=== PATIENT | female | born 1990 | race American Indian/Alaskan Native ===

== ENCOUNTER 2016-10-31 13:59 | Emergency (ER) | payer OTHER ==
[2016-10-31] MEDS ORDERED: Ketorolac 60 MG/2 ML SDV IM ONE (14:20)
--- NOTE | 2016-10-31 14:23 | EDM.PDOC ---
ED HPI ENT - General Chief Complaint: Back Pain or Injury Stated Complaint: SIDE PAIN Time Seen by Provider: 10/31/16 14:22 Source of Information: Reports: Patient History Limitations: Reports: No limitations - History of Present Illness INITIAL COMMENTS - FREE TEXT/NARRATIVE: HISTORY AND PHYSICAL: [26-year-old female who presents after having been coughing for 2 months now has left sided back pain] History of Present Illness: [2 month history of coughing upper respiratory illness. Pain occurred after a coughing spell] Review of Systems: As per history of present illness and below otherwise all systems reviewed and negative. Past medical history: As per history of present illness and as reviewed below otherwise noncontributory. Surgical history: As per history of present illness and as reviewed below otherwise noncontributory. Social history: No reported history of drug or alcohol abuse. Family history: As per history of present illness and as reviewed below otherwise noncontributory. Physical exam: HEENT: Atraumatic, normocehpalic, pupils reactive, negative for conjunctival pallor or scleral icterus, mucous membranes moist, throat clear, neck supple, nontender, trachea midline. Lungs: Clear to auscultation, breath sounds equal bilaterally, chest non tender. Heart: S1S2, regular, negative for clicks, rubs, or JVD. Abdomen: Soft, nondistended, nontender. Negative for masses or hepatossplenmegaly. Negative for costovertebral tenderness. Pelvis: Stable nontender. Genitourinary: Deferred. Rectal: Deferred Extremities: Atraumatic, negative for cords or calf pain. Neurovascular unremarkable. Neuro: Awake, alert, oriented. Cranial nerves II through XII unremarkable. Cerebellum unremarkable. Motor and sensory unremarkable throughout. Exam nonfocal. Patient improved in discomfort level after having the Toradol IM Diagnostics: [CBC CMP chest x-ray all unremarkable] Therapeutics: [60 mg Toradol IM] Impression: [Muscle spasm] Plan: [] Flexeril 10 mg 3 times a day when necessary muscle spasm Moist heat to this area Diclofenac twice a day Followup with [facility] Rylee Henley NP [facility] [address] [place] [id number] Definitive disposition and diagnosis as appropriate pending reevaluation and review of above. Timing/Duration: Reports: Week(s): Severity: moderate Quality: Reports: Ache Improves with: Reports: None Worsens with: Reports: Movement Associated Symptoms: Reports: cough, fever/chills - Related Data Allergies/ADRs: Allergies Allergy/AdvReac Type Severity Reaction Status Date / Time ampicillin sodium Allergy Hives Verified 01/17/14 10:06 [From Unasyn] Penicillins Allergy Hives Verified 01/17/14 10:06 sulbactam sodium Allergy Hives Verified 01/17/14 10:06 [From Unasyn] Home Meds: Home Meds Cyclobenzaprine [Flexeril] 10 mg PO BID #20 tablet 10/31/16 [Rx] Diclofenac Sodium [IJD: Diclofenac Sodium] 75 mg PO .TWICE DAILY W MEALS #20 tab.ec 10/31/16 [Rx] Past Medical History HEENT History: Reports: None Cardiovascular History: Reports: None Respiratory History: Reports: None Gastrointestinal History: Reports: None Genitourinary History: Reports: None 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 Musculoskeletal History: Reports: Fracture, Other (see below) Other Musculoskeletal History: sledding accident in 2002 resulting in head fractures, back injuries Neurological History: Reports: Headaches, chronic Psychiatric History: Reports: Depression Endocrine/Metabolic History: Reports: Other (see below) Other Endocrine/Metabolic History: PCOS, insulin resistance Dermatologic History: Reports: None - Infectious Disease History Infectious Disease History: Reports: None Social & Family History - Tobacco Use Smoking Status *Q: Current Every Day Smoker Years of Tobacco use: 2 Packs/Tins Daily: 0.2 - Alcohol Use Days Per Week of Alcohol Use: 0 - Recreational Drug Use Recreational Drug Use: No ED ROS ENT - Review of Systems Review Of Systems: ROS reveals no pertinent complaints other than HPI. ED EXAM, ENT - Physical Exam Exam: See Below Course - Orders/Labs/Meds Orders: Active Orders 24 hr Category Date Time Status Chest 2V [CR] Stat Exams 10/31/16 14:20 Taken Labs: Laboratory Tests 10/31/16 10/31/16 Range/Units 14:38 14:38 WBC 9.08 (4.0-11.0) K/uL RBC 5.13 (4.30-5.90) M/uL Hgb 14.9 (12.0-16.0) g/dL Hct 44.5 (36.0-46.0) % MCV 86.7 (80.0-98.0) fL MCH 29.0 (27.0-32.0) pg MCHC 33.5 (31.0-37.0) g/dL RDW Std Deviation 42.3 (28.0-62.0) fl RDW Coeff of Aga 13 (11.0-15.0) % Plt Count 248 (150-400) K/uL MPV 10.20 (7.40-12.00) fL Neut % (Auto) 50.1 (48.0-80.0) % Lymph % (Auto) 37.7 (16.0-40.0) % [place] % (Auto) 7.8 (0.0-15.0) % Eos % (Auto) 4.1 (0.0-7.0) % Baso % (Auto) 0.3 (0.0-1.5) % Neut # 4.6 (1.4-5.7) K/uL Lymph # 3.4 H (0.6-2.4) K/uL [place] # 0.7 (0.0-0.8) K/uL Eos # 0.4 (0.0-0.7) K/uL Baso # 0.0 (0.0-0.1) K/uL Nucleated RBC % 0.0 /100WBC Nucleated RBCs # 0 K/uL Sodium 138 (136-146) mmol/L Potassium 4.2 (3.5-5.1) mmol/L Chloride 105 (98-110) mmol/L Carbon Dioxide 23 (21-31) mmol/L BUN 14 (6.0-23.0) mg/dL Creatinine 0.8 (0.6-1.5) mg/dL Est Cr Clr Drug Dosing TNP Estimated GFR (MDRD) > 60.0 ml/min Glucose 91 (60-110) mg/dL Calcium 9.8 (8.8-10.8) mg/dL Total Bilirubin 0.6 (0.1-1.5) mg/dL AST 82 H (5-40) IU/L ALT 125 H (8-54) IU/L Alkaline Phosphatase 85 (40-150) Total Protein 8.3 H (6.0-8.0) g/dL Albumin 4.1 (3.5-5.0) g/dL Globulin 4.2 H (2.0-3.5) g/dL Albumin/Globulin Ratio 1.0 L (1.3-2.8) Meds: Medications Discontinued Medications Generic Name Dose Route Start Last Admin Trade Name Freq PRN Reason Stop Dose Admin Ketorolac Tromethamine 60 mg 10/31/16 14:20 10/31/16 14:28 Toradol IM 10/31/16 14:21 60 mg ONETIME ONE Administration Departure - Departure Time of Disposition: 15:43 Disposition: Home, Self-Care 01 Condition: good Clinical Impression: Muscle spasm of back Prescriptions: Cyclobenzaprine [Flexeril] 10 mg PO BID #20 tablet Diclofenac Sodium [IJD: Diclofenac Sodium] 75 mg PO .TWICE DAILY W MEALS #20 tab.ec Forms: ED Department Discharge - My Orders Last 24 Hours: My Active Orders 10/31/16 14:20 Chest 2V [CR] Stat - Assessment/Plan Last 24 Hours: My Active Orders 10/31/16 14:20 Chest 2V [CR] Stat
[2016-10-31 15:06] LABS: CHLORIDE,CL 105 mmol/L (98-110); SODIUM,NA 138 mmol/L (136-146)
[2016-10-31 16:13] VITALS: BP 138/75
--- NOTE | 2016-10-31 16:58 | CR ---
EXAM DATE: 10/31/16 PATIENT'S AGE: 26 PATIENT: TAMMY JONES Facility: [place], [place] Site . Site : 1990 Study: XRay Chest [id number] 3:04:29 PM Ordering Physician: Doctor Kovacs Final Report: INDICATION: pain, sob, left side having spasms x2 hrs TECHNIQUE: Chest 2 views. COMPARISON: None. FINDINGS: Cardiovascular and mediastinum: Heart size and vasculature are normal in caliber and appearance. Mediastinum is within normal limits. Lungs and pleural spaces: Lungs are clear. No sign of infiltrate or mass. No sign of pleural effusion. No pneumothorax. Bones and soft tissues: No significant findings. IMPRESSION: Unremarkable chest. Dictated by: Rafael Atkinson MD @ 10/31/2016 15:08:10 (Electronic Signature) Report Signed by Proxy and Original Signed Document filed in the Medical Record. MTDD
== END 2016-10-31 16:02 | disposition home or self-care (01) ==
LOC: MW.ED 13:59
DX: M62.830 Muscle spasm of back (principal); F32.9 Major depressive disorder, single episode, unspecified; Z88.0 Allergy status to penicillin; Z88.1 Allergy status to other antibiotic agents; F17.210 Nicotine dependence, cigarettes, uncomplicated
CPT/HCPCS: 36415; 71020; 80053; 85025; 96372; 99283; J1885

== ENCOUNTER 2018-03-12 21:52 | Emergency (ER) | payer OTHER ==
--- NOTE | 2018-03-12 21:59 | EDM.PDOC ---
ED HPI GENERAL MEDICAL PROBLEM - General Stated Complaint: PALPITATIONS Time Seen by Provider: 03/12/18 21:59 Source of Information: Reports: Patient History Limitations: Reports: No Limitations - History of Present Illness INITIAL COMMENTS - FREE TEXT/NARRATIVE: HISTORY AND PHYSICAL: History of present illness: 78-year-old female presenting the emergency department with chief complaint of heart palpitations. Patient states that today she felt like her heart was "acting weird". States that she's also had some associated swollen legs and some shortness of breath. She does have a history of asthma as a child. She has had a dry cough and has a history of PCOS. She denies any overt chest pain but secondary to her grandfather having a "heart attack at age 25" she thought she should come in for further evaluation. As above she denies any chest pain but has felt weird heartbeats on-and-off throughout the day. States that she has been working in extreme heat and doesn't know if she's been drinking enough water. She currently denies any chest pain, palpitations, shortness of breath, syncopal episodes, focal deficits. Review of systems: As per history of present illness and below otherwise all systems reviewed and negative. Past medical history: As per history of present illness and as reviewed below otherwise noncontributory. Surgical history: As per history of present illness and as reviewed below otherwise noncontributory. Social history: No reported history of drug or alcohol abuse. Family history: As per history of present illness and as reviewed below otherwise noncontributory. Physical exam: HEENT: Atraumatic, normocephalic, pupils reactive, negative for conjunctival pallor or scleral icterus, mucous membranes moist, throat clear, neck supple, nontender, trachea midline. Lungs: Clear to auscultation, breath sounds equal bilaterally, chest nontender. Heart: S1S2, regular, negative for clicks, rubs, or JVD. Abdomen: Soft, nondistended, nontender. Negative for masses or hepatosplenomegaly. Negative for costovertebral tenderness. Pelvis: Stable nontender. Genitourinary: Deferred. Rectal: Deferred. Extremities: Atraumatic, negative for cords or calf pain. Neurovascular unremarkable. Neuro: Awake, alert, oriented. Cranial nerves II through XII unremarkable. Cerebellum unremarkable. Motor and sensory unremarkable throughout. Exam nonfocal. Diagnostics: CBC, CMP, troponin, EKG, chest x-ray, Therapeutics: 1 L normal saline Impression: Atypical chest pain Anxiety Plan: CBC, CMP, troponin, EKG, and chest x-ray were all unremarkable. Her heart symptoms seem to be more anxiety related. This may be secondary to her reported strong family history of heart disease. Patient was instructed to follow-up with a primary care provider and all numbers were given to her as she has not seen a provider in sometime. She was told to return to emergency department if she had any new or worsening symptoms. Definitive disposition and diagnosis as appropriate pending reevaluation and review of above. denies pain Pain Score (Numeric/FACES): 0 - Related Data Allergies Allergy/AdvReac Type Severity Reaction Status Date / Time ampicillin sodium Allergy Hives Verified 03/12/18 22:07 [From Unasyn] Penicillins Allergy Hives Verified 03/12/18 22:07 sulbactam sodium Allergy Hives Verified 03/12/18 22:07 [From Unasyn] Home Meds: Home Meds Cyclobenzaprine [Flexeril] 10 mg PO BID #20 tablet 10/31/16 [Rx] Diclofenac Sodium [IJD: Diclofenac Sodium] 75 mg PO .TWICE DAILY W MEALS #20 tab.ec 10/31/16 [Rx] Past Medical History HEENT History: Reports: None Cardiovascular History: Reports: None Respiratory History: Reports: None Gastrointestinal History: Reports: None Genitourinary History: Reports: None 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 ED EXAM, GENERAL - Physical Exam Exam: See Below Course - Vital Signs Last Recorded V/S: Last Vital Signs Temp 98.5 F 03/12/18 22:07 Pulse 84 03/12/18 23:06 Resp 18 03/12/18 23:06 BP 122/72 03/12/18 23:06 Pulse Ox 98 03/12/18 23:06 - Orders/Labs/Meds Orders: Active Orders 24 hr Category Date Time Status Cardiac Monitoring [RC] . DIRECTED Care 03/12/18 22:36 Active EKG Documentation Completion [RC] STAT Care 03/12/18 22:36 Inactive Oxygen Therapy [RC] ASDIRECTED Care 03/12/18 22:36 Active Pulse Oximetry [RC] ASDIRECTED Care 03/12/18 22:36 Active Chest 2V [CR] Stat Exams 03/12/18 22:36 Taken HCG QUALITATIVE,URINE [URCHEM] Stat Lab 03/12/18 23:04 Ordered UA W/MICROSCOPIC [URIN] Stat Lab 03/12/18 23:04 Ordered Sodium Chloride 0.9% [Saline Flush] Med 03/12/18 22:36 Active 10 ml FLUSH ASDIRECTED PRN Sodium Chloride 0.9% [Saline Flush] Med 03/12/18 22:36 Active 2.5 ml FLUSH ASDIRECTED PRN Sodium Chloride 0.9% [Saline Flush] Med 03/12/18 22:36 Active 2.5 ml FLUSH ASDIRECTED PRN Saline Lock Insert [OM.PC] Stat Oth 03/12/18 22:36 Ordered Medication Orders Sodium Chloride (Saline Flush) 2.5 ml FLUSH ASDIRECTED PRN PRN Reason: Keep Vein Open Sodium Chloride (Saline Flush) 10 ml FLUSH ASDIRECTED PRN PRN Reason: Keep Vein Open Sodium Chloride (Saline Flush) 2.5 ml FLUSH ASDIRECTED PRN PRN Reason: Keep Vein Open Labs: Laboratory Tests 03/12/18 03/12/18 03/12/18 Range/Units 23:02 23:02 23:04 WBC 10.33 (4.0-11.0) K/uL RBC 4.68 (4.30-5.90) M/uL Hgb 13.4 (12.0-16.0) g/dL Hct 40.8 (36.0-46.0) % MCV 87.2 (80.0-98.0) fL MCH 28.6 (27.0-32.0) pg MCHC 32.8 (31.0-37.0) g/dL RDW Std Deviation 44.4 (28.0-62.0) fl RDW Coeff of Aga 14 (11.0-15.0) % Plt Count 240 (150-400) K/uL MPV 10.80 (7.40-12.00) fL Neut % (Auto) 53.8 (48.0-80.0) % Lymph % (Auto) 35.3 (16.0-40.0) % [place] % (Auto) 7.2 (0.0-15.0) % Eos % (Auto) 3.5 (0.0-7.0) % Baso % (Auto) 0.2 (0.0-1.5) % Neut # (Auto) 5.6 (1.4-5.7) K/uL Lymph # (Auto) 3.7 H (0.6-2.4) K/uL [place] # (Auto) 0.7 (0.0-0.8) K/uL Eos # (Auto) 0.4 (0.0-0.7) K/uL Baso # (Auto) 0.0 (0.0-0.1) K/uL Nucleated RBC % 0.0 /100WBC Nucleated RBCs # 0 K/uL Sodium 140 (136-145) mmol/L Potassium 3.9 (3.5-5.1) mmol/L Chloride 105 (98-107) mmol/L Carbon Dioxide 27.6 (21.0-32.0) mmol/L BUN 13 (7.0-18.0) mg/dL Creatinine 1.0 (0.6-1.0) mg/dL Est Cr Clr Drug Dosing 82.18 mL/min Estimated GFR (MDRD) > 60.0 ml/min Glucose 157 H (74-106) mg/dL Calcium 8.9 (8.5-10.1) mg/dL Total Bilirubin 0.2 (0.2-1.0) mg/dL AST 56 H (15-37) IU/L ALT 99 H (14-63) IU/L Alkaline Phosphatase 102 (46-116) U/L Troponin I < 0.050 (0.000-0.056) ng/mL Total Protein 7.3 (6.4-8.2) g/dL Albumin 3.4 (3.4-5.0) g/dL Globulin 3.9 H (2.0-3.5) g/dL Albumin/Globulin Ratio 0.9 L (1.3-2.8) Urine Color YELLOW Urine Appearance CLEAR Urine pH 7.0 (5.0-8.0) Ur Specific [place] <= 1.005 (1.001-1.035) Urine Protein NEGATIVE (NEGATIVE) mg/dL Urine Glucose (UA) NEGATIVE (NEGATIVE) mg/dL Urine Ketones NEGATIVE (NEGATIVE) mg/dL Urine Occult Blood NEGATIVE (NEGATIVE) Urine Nitrite NEGATIVE (NEGATIVE) Urine Bilirubin NEGATIVE (NEGATIVE) Urine Urobilinogen 0.2 (<2.0) EU/dL Ur Leukocyte Esterase NEGATIVE (NEGATIVE) Urine RBC NONE SEEN (0-2/HPF) Urine WBC 0-1 (0-5/HPF) Ur Epithelial Cells RARE (NONE-FEW) Urine Bacteria FEW (NEGATIVE) Urine Mucus LIGHT (NONE-MOD) Urine HCG, Qual (NEGATIVE) 03/12/18 Range/Units 23:04 WBC (4.0-11.0) K/uL RBC (4.30-5.90) M/uL Hgb (12.0-16.0) g/dL Hct (36.0-46.0) % MCV (80.0-98.0) fL MCH (27.0-32.0) pg MCHC (31.0-37.0) g/dL RDW Std Deviation (28.0-62.0) fl RDW Coeff of Aga (11.0-15.0) % Plt Count (150-400) K/uL MPV (7.40-12.00) fL Neut % (Auto) (48.0-80.0) % Lymph % (Auto) (16.0-40.0) % [place] % (Auto) (0.0-15.0) % Eos % (Auto) (0.0-7.0) % Baso % (Auto) (0.0-1.5) % Neut # (Auto) (1.4-5.7) K/uL Lymph # (Auto) (0.6-2.4) K/uL [place] # (Auto) (0.0-0.8) K/uL Eos # (Auto) (0.0-0.7) K/uL Baso # (Auto) (0.0-0.1) K/uL Nucleated RBC % /100WBC Nucleated RBCs # K/uL Sodium (136-145) mmol/L Potassium (3.5-5.1) mmol/L Chloride (98-107) mmol/L Carbon Dioxide (21.0-32.0) mmol/L BUN (7.0-18.0) mg/dL Creatinine (0.6-1.0) mg/dL Est Cr Clr Drug Dosing mL/min Estimated GFR (MDRD) ml/min Glucose (74-106) mg/dL Calcium (8.5-10.1) mg/dL Total Bilirubin (0.2-1.0) mg/dL AST (15-37) IU/L ALT (14-63) IU/L Alkaline Phosphatase (46-116) U/L Troponin I (0.000-0.056) ng/mL Total Protein (6.4-8.2) g/dL Albumin (3.4-5.0) g/dL Globulin (2.0-3.5) g/dL Albumin/Globulin Ratio (1.3-2.8) Urine Color Urine Appearance Urine pH (5.0-8.0) Ur Specific [place] (1.001-1.035) Urine Protein (NEGATIVE) mg/dL Urine Glucose (UA) (NEGATIVE) mg/dL Urine Ketones (NEGATIVE) mg/dL Urine Occult Blood (NEGATIVE) Urine Nitrite (NEGATIVE) Urine Bilirubin (NEGATIVE) Urine Urobilinogen (<2.0) EU/dL Ur Leukocyte Esterase (NEGATIVE) Urine RBC (0-2/HPF) Urine WBC (0-5/HPF) Ur Epithelial Cells (NONE-FEW) Urine Bacteria (NEGATIVE) Urine Mucus (NONE-MOD) Urine HCG, Qual NEGATIVE (NEGATIVE) Meds: Medications Generic Name Dose Route Start Last Admin Trade Name Freq PRN Reason Stop Dose Admin Sodium Chloride 2.5 ml 03/12/18 22:36 Saline Flush FLUSH ASDIRECTED PRN Keep Vein Open Sodium Chloride 10 ml 03/12/18 22:36 Saline Flush FLUSH ASDIRECTED PRN Keep Vein Open Sodium Chloride 2.5 ml 03/12/18 22:36 Saline Flush FLUSH ASDIRECTED PRN Keep Vein Open Discontinued Medications Generic Name Dose Route Start Last Admin Trade Name Freq PRN Reason Stop Dose Admin Sodium Chloride 1,000 mls @ 999 mls/hr 03/12/18 22:36 03/12/18 23:04 Normal Saline IV 03/12/18 23:36 999 mls/hr .Bolus ONE Administration Departure - Departure Time of Disposition: 00:36 Disposition: Home, Self-Care 01 Condition: Good Clinical Impression: Atypical chest pain - Discharge Information Referrals: PCP,None [Primary Care Provider] - Additional Instructions: My general discharge The following information is given to patients seen in the emergency department who are being discharged to home. This information is to outline your options for follow-up care. We provide all patients seen in our emergency department with a follow-up referral. The need for follow-up, as well as the timing and circumstances, are variable depending upon the specifics of your emergency department visit. If you don't have a primary care physician on staff, we will provide you with a referral. We always advise you to contact your personal physician following an emergency department visit to inform them of the circumstance of the visit and for follow-up with them and/or the need for any referrals to a consulting specialist. The emergency department will also refer you to a specialist when appropriate. This referral assures that you have the opportunity for follow-up care with a specialist. All of these measure are taken in an effort to provide you with optimal care, which includes your follow-up. Under all circumstances we always encourage you to contact your private physician who remains a resource for coordinating your care. When calling for follow-up care, please make the office aware that this follow-up is from your recent emergency room visit. If for any reason you are refused follow-up, please contact the [facility] Emergency Department at and asked to speak to the emergency department charge nurse. [facility] [address] [place] [id number] [facility] - [facility] [address] [place] [id number] [facility] [address] [place] [id number] Please call 1 of the above numbers tomorrow and make an appointment for a primary care provider. Be sure to tell them that you were seen in the emergency department and they wish that you follow-up. Return to emergency department if he have any new or worsening symptoms. - My Orders Last 24 Hours: My Active Orders 03/12/18 22:36 Cardiac Monitoring [RC] . DIRECTED EKG Documentation Completion [RC] STAT Oxygen Therapy [RC] ASDIRECTED Pulse Oximetry [RC] ASDIRECTED Chest 2V [CR] Stat Sodium Chloride 0.9% [Saline Flush] 10 ml FLUSH ASDIRECTED PRN Sodium Chloride 0.9% [Saline Flush] 2.5 ml FLUSH ASDIRECTED PRN Sodium Chloride 0.9% [Saline Flush] 2.5 ml FLUSH ASDIRECTED PRN Saline Lock Insert [OM.PC] Stat 03/12/18 23:04 HCG QUALITATIVE,URINE [URCHEM] Stat UA W/MICROSCOPIC [URIN] Stat - Assessment/Plan Last 24 Hours: My Active Orders 03/12/18 22:36 Cardiac Monitoring [RC] . DIRECTED EKG Documentation Completion [RC] STAT Oxygen Therapy [RC] ASDIRECTED Pulse Oximetry [RC] ASDIRECTED Chest 2V [CR] Stat Sodium Chloride 0.9% [Saline Flush] 10 ml FLUSH ASDIRECTED PRN Sodium Chloride 0.9% [Saline Flush] 2.5 ml FLUSH ASDIRECTED PRN Sodium Chloride 0.9% [Saline Flush] 2.5 ml FLUSH ASDIRECTED PRN Saline Lock Insert [OM.PC] Stat 03/12/18 23:04 HCG QUALITATIVE,URINE [URCHEM] Stat UA W/MICROSCOPIC [URIN] Stat
[2018-03-12] MEDS ORDERED: Sodium Chloride 0.9% 10 ML Syringe FLUSH PRN (22:36)
[2018-03-12] MEDS ORDERED: Sodium Chloride 0.9% 2.5 ML Syringe FLUSH PRN ×2 (22:36)
[2018-03-12] MEDS ORDERED: Sodium Chloride 0.9% 1,000 ML IV ONE (22:36)
[2018-03-12 23:38] LABS: CHLORIDE,CL 105 mmol/L (98-107); SODIUM,NA 140 mmol/L (136-145)
[2018-03-13 00:51] VITALS: BP 120/75
--- NOTE | 2018-03-13 17:24 | CR ---
EXAM DATE: 03/12/18 PATIENT'S AGE: 28 Patient: TAMMY OJNES Facility: [place], [place] Site . Site : 1990 Study: XRay Chest [id number]/2018 11:44:02 PM Ordering Physician: Pablo Rodriguez Final Report: INDICATION: SOB, HEART PALPITATIONS TECHNIQUE: Chest 2 views COMPARISON: October 31, 2016 FINDINGS: Cardiovascular and mediastinum: Heart size and vasculature are normal in caliber and appearance. Mediastinum is within normal limits. Lungs and pleural spaces: No focal consolidation. No sign of pleural effusion. No pneumothorax. Bones and soft tissues: No significant findings. IMPRESSION: No acute cardiopulmonary disease. Dictated by Newton Ruano MD @ 03/12/2018 11:47:05 PM Dictated by: Newton Ruano MD @ 03/12/2018 23:47:19 (Electronic Signature) Report Signed by Proxy. [facility] HOSPITALArlette
== END 2018-03-13 00:40 | disposition home or self-care (01) ==
LOC: MW.ED 21:52
DX: F41.9 Anxiety disorder, unspecified (principal); Z88.0 Allergy status to penicillin; Z88.8 Allergy status to other drugs, medicaments and biological substances; Z79.899 Other long term (current) drug therapy; Z88.1 Allergy status to other antibiotic agents
CPT/HCPCS: 71046; 80053; 81001; 81025; 84484; 85025; 93005; 96360; 99285; J7040